=== PATIENT | female | born 1960 | race Caucasian/White ===

== ENCOUNTER 2023-07-02 16:27 | Inpatient (IN) | payer OTHER ==
[2023-07-02 17:29] VITALS: BMI 34.2
[2023-07-02] MEDS ORDERED: DOCUSATE SODIUM 100 MG CAPSULE (FP) PO PRN (20:20)
[2023-07-02] MEDS ORDERED: BENZOCAINE/MENTHOL (CHLORASEPTIC ) LOZENGE MM PRN (20:20)
[2023-07-02] MEDS ORDERED: P-EPHED 60MG/TRIPROLIDI 2.5MG TABLET PO PRN (20:20)
[2023-07-02] MEDS ORDERED: MAG HYDROX/AL HYDROX/SIMETH 30 ML UNIT-DOSE CUP PO PRN (20:20)
[2023-07-02] MEDS ORDERED: IBUPROFEN 600 MG TABLET (FP) PO PRN (20:20)
[2023-07-02] MEDS ORDERED: ACETAMINOPHEN 325 MG TABLET (FP) PO PRN (20:20)
[2023-07-02] MEDS ORDERED: NICOTINE POLACRILEX 2 MG GUM BUC PRN (20:20)
[2023-07-02] MEDS ORDERED: POLYETHYLENE GLYCOL (HEALTHYLAX) 3350 17 GM PACKET PO PRN (20:20)
[2023-07-02] MEDS ORDERED: BENZONATATE 200 MG CAPSULE PO PRN (20:20)
[2023-07-02] MEDS ORDERED: MAGNESIUM HYDROX 2400MG/30ML ORAL SUSPENSION 30 ML CUP PO PRN (20:20)
[2023-07-02] MEDS ORDERED: LOPERAMIDE HCL 2 MG CAPSULE PO PRN (20:20)
[2023-07-02] MEDS ORDERED: BISACODYL 5 MG TABLET.DR (FP) PO PRN (20:20)
[2023-07-02] MEDS: ALBUTEROL SO4 2.5/IPRATROPIUM 0.5 INH SOL 3 ML VIAL.NEB. NEB SCH (20:30)
[2023-07-02] MEDS ORDERED: ALBUTEROL SO4 2.5/IPRATROPIUM 0.5 INH SOL 3 ML VIAL.NEB. NEB ONE (20:39)
[2023-07-02] MEDS ORDERED: ALBUTEROL SO4 HFA INHALER IH PRN (21:12)
[2023-07-02] MEDS ORDERED: IBUPROFEN 600 MG TABLET (FP) PO ONE (21:30)
[2023-07-02] MEDS: MELATONIN 5 MG TABLETS PO SCH (23:02)
[2023-07-02] MEDS: THIAMINE HCL 100 MG TABLET (FP) PO SCH (23:02)
[2023-07-02 23:05] VITALS: RESP 18
[2023-07-02] MEDS: LIDOCAINE PATCH REMOVAL MC SCH (23:05)
[2023-07-03] MEDS: guaiFENesin 600 MG TABLET.ER (FP) PO PRN (02:40)
[2023-07-03] MEDS: IBUPROFEN 400 MG TABLET (FP) PO PRN (07:32)
[2023-07-03] MEDS: PRENATAL VITAMINS W/ FOLIC ACID TABLET (FP) PO SCH (10:06)
[2023-07-03] MEDS: LIDOCAINE 5% TOPICAL PATCH TP SCH (10:07)
[2023-07-03] MEDS: FLU VACCINE (FLULAVAL) PF 60 MCG/0.5 ML SYRINGE 2023-2024 IM ONE (12:06)
[2023-07-03 12:07] LABS: HEMATOCRIT 36.6 % (32.4-45.2); MCH 28.3 pg (25.7-33.7); MCHC 32.8 g/dl (32.0-36.0); MEAN CELL VOLUME 86.4 fl (80-96); MEAN PLT VOLUME 9.1 fl (7.5-11.1); PLATELET COUNT 319 10^3/uL (134-434); RBC 4.24 M/mm3 (3.60-5.2); RDW 15.3 % (11.6-15.6); WHITE BLOOD COUNT 7.6 K/mm3 (4.0-10.0)
[2023-07-03] MEDS: SERTRALINE HCL 50 MG TABLET (FP) PO SCH (12:07)
[2023-07-03 13:56] LABS: POTASSIUM 3.9 mmol/L (3.5-5.1)
[2023-07-03 14:05] LABS: ALBUMIN 3.1 g/dl (3.4-5.0); CALCIUM 8.5 mg/dL (8.5-10.1)
[2023-07-03 14:08] LABS: CREATININE 0.6 mg/dL (0.55-1.3)
[2023-07-03 14:10] LABS: BILIRUBIN,TOTAL 0.2 mg/dL (0.2-1); TOT PROT 6.8 g/dl (6.4-8.2)
[2023-07-03 18:03] LABS: SYPHILIS W/ RPR CONF NON-REACTIVE (NONREACTIVE)
[2023-07-03 18:18] VITALS: BP 126/74; PULSE 89; TEMP 97.7
[2023-07-03] MEDS: QUEtiapine FUMARATE 200 MG TABLET PO SCH (22:48)
== END 2023-07-04 02:50 | disposition short-term general hospital (02) | DRG 895 ==
LOC: YASAS 16:27 → Y5N 22:28
PROVIDERS: ADMIT Allergy & Immunology; ATTEND Psychiatry & Neurology Pain Medicine
PROC: HZ42ZZZ Group Counseling for Substance Abuse Treatment, Cognitive-Behavioral (ICD-10-PCS; principal; 2023-07-02)
DX: F14.20 Cocaine dependence, uncomplicated (principal); F19.280 Other psychoactive substance dependence with psychoactive substance-induced anxiety disorder; F19.282 Other psychoactive substance dependence with psychoactive substance-induced sleep disorder; F12.20 Cannabis dependence, uncomplicated; F17.210 Nicotine dependence, cigarettes, uncomplicated; F19.24 Other psychoactive substance dependence with psychoactive substance-induced mood disorder; F31.9 Bipolar disorder, unspecified; Z21 Asymptomatic human immunodeficiency virus [HIV] infection status; J44.9 Chronic obstructive pulmonary disease, unspecified; R05.9 Cough, unspecified; Z62.810 Personal history of physical and sexual abuse in childhood; Z91.410 Personal history of adult physical and sexual abuse; Z99.89 Dependence on other enabling machines and devices
CPT/HCPCS: 0241U-QW; 36415; 71046-TC-FY; 80053; 85027; 86780; 86803; 90686; 93005; 93010; 94640; G0008

== ENCOUNTER 2023-07-03 17:09 | Inpatient (IN) | payer OTHER ==
[2023-07-03 18:05] VITALS: BMI 31.2
[2023-07-03 20:02] LABS: BASO % 0.3 % (0-2.0); EOS % 2.1 % (0-4.5); HEMATOCRIT 36.8 % (32.4-45.2); LYMPH % 28.5 % (8-40); MCH 28.2 pg (25.7-33.7); MCHC 32.5 g/dl (32.0-36.0); MEAN CELL VOLUME 86.7 fl (80-96); MEAN PLT VOLUME 8.7 fl (7.5-11.1); MONO % 7.3 % (3.8-10.2); NEUT % 61.8 % (42.8-82.8); PLATELET COUNT 296 10^3/uL (134-434); RBC 4.25 M/mm3 (3.60-5.2); RDW 14.9 % (11.6-15.6); WHITE BLOOD COUNT 9.1 K/mm3 (4.0-10.0)
[2023-07-03 20:08] LABS: INR 1.03 (0.83-1.09)
[2023-07-03 20:10] LABS: ACTIVATED PTT 29.4 SECONDS (25.2-36.5)
[2023-07-03 20:43] LABS: POTASSIUM 4.1 mmol/L (3.5-5.1)
[2023-07-03 20:45] LABS: ALBUMIN 3.3 g/dl (3.4-5.0); CALCIUM 8.8 mg/dL (8.5-10.1)
[2023-07-03 20:46] LABS: MAGNESIUM 2.1 mg/dL (1.8-2.4)
[2023-07-03 20:49] LABS: CREATININE 0.6 mg/dL (0.55-1.3); PHOSPHOROUS 3.4 mg/dL (2.5-4.9)
[2023-07-03 20:50] LABS: BILIRUBIN,TOTAL 0.1 mg/dL (0.2-1); TOT PROT 7.2 g/dl (6.4-8.2)
[2023-07-04] MEDS: ACETAMINOPHEN 1000 MG/100 ML BAG IVPB ONE (01:51)
[2023-07-04] MEDS: MELATONIN 5 MG TABLETS PO ONE (01:51)
[2023-07-04 07:59] LABS: BASO % 0.5 % (0-2.0); EOS % 2.3 % (0-4.5); HEMATOCRIT 33.7 % (32.4-45.2); HEMOGLOBIN 11.5 GM/dL (10.7-15.3); LYMPH % 22.1 % (8-40); MEAN CELL VOLUME 85.2 fl (80-96); MEAN PLT VOLUME 9.1 fl (7.5-11.1); MONO % 8.7 % (3.8-10.2); NEUT % 66.4 % (42.8-82.8); PLATELET COUNT 277 10^3/uL (134-434); RBC 3.95 M/mm3 (3.60-5.2); RDW 14.8 % (11.6-15.6); WHITE BLOOD COUNT 7.8 K/mm3 (4.0-10.0)
[2023-07-04 08:09] LABS: POTASSIUM 3.7 mmol/L (3.5-5.1)
[2023-07-04 08:13] LABS: ALBUMIN 2.8 g/dl (3.4-5.0); BLOOD UREA NITROGEN 13.8 mg/dL (7-18); CALCIUM 8.2 mg/dL (8.5-10.1); MAGNESIUM 1.9 mg/dL (1.8-2.4)
[2023-07-04 08:16] LABS: CREATININE 0.5 mg/dL (0.55-1.3); PHOSPHOROUS 3.1 mg/dL (2.5-4.9)
[2023-07-04 08:18] LABS: BILIRUBIN,TOTAL 0.3 mg/dL (0.2-1); TOT PROT 6.8 g/dl (6.4-8.2)
[2023-07-04 09:21] LABS: ERYTHROCYTE SEDIMENTATION RATE 27 mm/hr (0-30)
[2023-07-04] MEDS: ACETAMINOPHEN 1000 MG/100 ML BAG IVPB PRN (09:53)
[2023-07-04] MEDS ORDERED: ACYCLOVIR 200 MG CAPSULE ONE (09:57)
[2023-07-04] MEDS ORDERED: NICOTINE 7 MG/24 HOURS TOPICAL PATCH TD ONE (09:58)
[2023-07-04] MEDS: SERTRALINE HCL 50 MG TABLET (FP) PO ONE (10:05)
[2023-07-04] MEDS: ACYCLOVIR 400 MG TABLET PO ONE (10:06)
[2023-07-04] MEDS: NICOTINE 7 MG/24 HOURS TOPICAL PATCH TD SCH (10:06)
[2023-07-04] MEDS ORDERED: ACYCLOVIR 400 MG TABLET PO SCH (12:37)
[2023-07-04] MEDS ORDERED: ACETAMINOPHEN INJECTION 100 ML IVPB ONE (18:48)
[2023-07-04] MEDS ORDERED: QUEtiapine FUMARATE 100 MG TABLET (FP) ONE (22:48)
[2023-07-04] MEDS: QUEtiapine FUMARATE 100 MG TABLET (FP) PO SCH (22:55)
[2023-07-05 09:21] LABS: BASO % 0.7 % (0-2.0); EOS % 2.8 % (0-4.5); HEMATOCRIT 36.6 % (32.4-45.2); HEMOGLOBIN 11.8 GM/dL (10.7-15.3); LYMPH % 31.6 % (8-40); MCH 27.7 pg (25.7-33.7); MCHC 32.2 g/dl (32.0-36.0); MEAN PLT VOLUME 8.3 fl (7.5-11.1); MONO % 9.4 % (3.8-10.2); NEUT % 55.5 % (42.8-82.8); PLATELET COUNT 270 10^3/uL (134-434); RBC 4.25 M/mm3 (3.60-5.2); RDW 14.7 % (11.6-15.6); WHITE BLOOD COUNT 6.3 K/mm3 (4.0-10.0)
[2023-07-05 09:49] LABS: CALCIUM 8.6 mg/dL (8.5-10.1)
[2023-07-05 09:50] LABS: BLOOD UREA NITROGEN 16.9 mg/dL (7-18)
[2023-07-05 09:53] LABS: CREATININE 0.6 mg/dL (0.55-1.3)
[2023-07-05 09:54] LABS: TOT PROT 6.9 g/dl (6.4-8.2)
[2023-07-05 09:55] LABS: BILIRUBIN,TOTAL 0.2 mg/dL (0.2-1)
[2023-07-05] MEDS ORDERED: SERTRALINE HCL 50 MG TABLET (FP) ONE (10:29)
[2023-07-05] MEDS: SERTRALINE HCL 50 MG TABLET (FP) PO SCH (10:32)
[2023-07-05] MEDS: ELVITEG/COB/EMTRI/TENOF (GENVOYA) TABLET PO SCH (10:32)
[2023-07-05] MEDS ORDERED: ACETAMINOPHEN INJECTION 100 ML IVPB ONE ×2 (11:12→20:36)
[2023-07-05] MEDS: ACETAMINOPHEN 1000 MG/100 ML BAG IVPB ONE ×2 (11:21→20:41)
[2023-07-05 20:10] LABS: CYCLIC CITRULLINE PEPTIDE AB 11 units (0-19)
[2023-07-05] MEDS ORDERED: ACYCLOVIR 200 MG CAPSULE ONE (22:02)
[2023-07-05] MEDS: ACYCLOVIR 400 MG TABLET PO SCH (22:04)
[2023-07-06] MEDS ORDERED: ACYCLOVIR 200 MG CAPSULE ONE (06:18)
[2023-07-06 06:49] LABS: HEMOGLOBIN 11.5 GM/dL (10.7-15.3); MCH 28.2 pg (25.7-33.7); MCHC 32.8 g/dl (32.0-36.0); MEAN CELL VOLUME 86.1 fl (80-96); MEAN PLT VOLUME 8.8 fl (7.5-11.1); PLATELET COUNT 249 10^3/uL (134-434); RBC 4.07 M/mm3 (3.60-5.2); RDW 14.9 % (11.6-15.6); WHITE BLOOD COUNT 5.1 K/mm3 (4.0-10.0)
[2023-07-06 07:01] LABS: ALBUMIN 2.8 g/dl (3.4-5.0); BLOOD UREA NITROGEN 24.5 mg/dL (7-18); CALCIUM 8.3 mg/dL (8.5-10.1)
[2023-07-06 07:04] LABS: CREATININE 0.5 mg/dL (0.55-1.3)
[2023-07-06 07:06] LABS: BILIRUBIN,TOTAL 0.2 mg/dL (0.2-1); TOT PROT 6.5 g/dl (6.4-8.2)
[2023-07-06] MEDS ORDERED: ACETAMINOPHEN INJECTION 100 ML IVPB ONE (09:52)
[2023-07-06] MEDS: ACETAMINOPHEN 1000 MG/100 ML BAG IVPB PRN (10:01)
[2023-07-06 15:28] VITALS: RESP 18
[2023-07-06] MEDS: IBUPROFEN 400 MG TABLET (FP) PO PRN (17:11)
[2023-07-07 09:12] LABS: HEMATOCRIT 36.7 % (32.4-45.2); MCHC 32.6 g/dl (32.0-36.0); MEAN CELL VOLUME 85.8 fl (80-96); MEAN PLT VOLUME 8.6 fl (7.5-11.1); PLATELET COUNT 259 10^3/uL (134-434); RBC 4.28 M/mm3 (3.60-5.2); RDW 14.8 % (11.6-15.6); WHITE BLOOD COUNT 6.3 K/mm3 (4.0-10.0)
[2023-07-07 09:32] LABS: POTASSIUM 4.4 mmol/L (3.5-5.1)
[2023-07-07 09:35] LABS: CALCIUM 8.1 mg/dL (8.5-10.1)
[2023-07-07 09:36] LABS: BLOOD UREA NITROGEN 19.6 mg/dL (7-18)
[2023-07-07 09:39] LABS: CREATININE 0.6 mg/dL (0.55-1.3)
[2023-07-08 11:07] LABS: METHADONE, UR NEGATIVE (NEGATIVE); URINE AMPHETAMINES NEGATIVE (NEGATIVE); URINE BENZODIAZEPINES NEGATIVE (NEGATIVE)
[2023-07-08 11:08] LABS: OPIATES, URI NEGATIVE (NEGATIVE); URINE BARBITURATES NEGATIVE (NEGATIVE)
[2023-07-08 11:09] LABS: PHENCYCLIDINE,URINE NEGATIVE (NEGATIVE)
[2023-07-08 11:12] LABS: COCAINE, UR POSITIVE (NEGATIVE)
[2023-07-08] MEDS: FAMOTIDINE 20 MG/50 ML IVPB 20 MG/50 ML MG IVPB ONE (12:03)
[2023-07-08 12:41] LABS: BASO % 0.8 % (0-2.0); HEMATOCRIT 35.5 % (32.4-45.2); HEMOGLOBIN 11.9 GM/dL (10.7-15.3); LYMPH % 29.8 % (8-40); MCH 28.8 pg (25.7-33.7); MCHC 33.5 g/dl (32.0-36.0); MEAN CELL VOLUME 86.1 fl (80-96); MEAN PLT VOLUME 9.4 fl (7.5-11.1); MONO % 7.5 % (3.8-10.2); NEUT % 58.9 % (42.8-82.8); PLATELET COUNT 270 10^3/uL (134-434); RBC 4.12 M/mm3 (3.60-5.2); RDW 15.2 % (11.6-15.6); WHITE BLOOD COUNT 6.9 K/mm3 (4.0-10.0)
[2023-07-08 13:02] LABS: POTASSIUM 4.5 mmol/L (3.5-5.1)
[2023-07-08 13:04] LABS: BLOOD UREA NITROGEN 21.2 mg/dL (7-18)
[2023-07-08 13:07] LABS: CREATININE 0.8 mg/dL (0.55-1.3)
[2023-07-08 16:10] LABS: ATYPICAL pANCA <1:20 titer (Neg:<1:20); C-ANCA <1:20 titer (Neg:<1:20)
[2023-07-08] MEDS ORDERED: TRIMETHOBENZAMIDE HCL 200MG/2ML INJ IM PRN (17:58)
[2023-07-09 08:37] VITALS: BP 108/51; PULSE 76; TEMP 98.6
[2023-07-09 08:52] LABS: BASO % 0.9 % (0-2.0); EOS % 3.9 % (0-4.5); HEMATOCRIT 34.6 % (32.4-45.2); HEMOGLOBIN 11.4 GM/dL (10.7-15.3); LYMPH % 38.4 % (8-40); MCH 28.1 pg (25.7-33.7); MCHC 32.8 g/dl (32.0-36.0); MEAN CELL VOLUME 85.8 fl (80-96); MEAN PLT VOLUME 9.2 fl (7.5-11.1); MONO % 9.3 % (3.8-10.2); NEUT % 47.5 % (42.8-82.8); PLATELET COUNT 249 10^3/uL (134-434); RBC 4.03 M/mm3 (3.60-5.2); RDW 14.6 % (11.6-15.6); WHITE BLOOD COUNT 5.2 K/mm3 (4.0-10.0)
[2023-07-09 09:13] LABS: POTASSIUM 4.3 mmol/L (3.5-5.1)
[2023-07-09 09:15] LABS: CALCIUM 8.8 mg/dL (8.5-10.1)
[2023-07-09 09:16] LABS: ALBUMIN 2.9 g/dl (3.4-5.0); BLOOD UREA NITROGEN 20.1 mg/dL (7-18); MAGNESIUM 2.1 mg/dL (1.8-2.4)
[2023-07-09 09:19] LABS: CREATININE 0.5 mg/dL (0.55-1.3)
[2023-07-09 09:20] LABS: BILIRUBIN,TOTAL 0.3 mg/dL (0.2-1)
[2023-07-09 09:21] LABS: TOT PROT 6.8 g/dl (6.4-8.2)
[2023-07-12] MEDS ORDERED: QUEtiapine FUMARATE 100 MG TABLET (FP) PO SCH (10:45)
== END 2023-07-09 14:28 | disposition other institution (70) | DRG 897 ==
LOC: JER 17:09 → JERBED 21:35 → J6S 07-06 16:56
PROVIDERS: ADMIT Internal Medicine; ATTEND Internal Medicine
DX: F14.288 Cocaine dependence with other cocaine-induced disorder (principal); J84.9 Interstitial pulmonary disease, unspecified; F14.20 Cocaine dependence, uncomplicated; J98.11 Atelectasis; Z59.00 Homelessness unspecified; R05.3 Chronic cough; F31.9 Bipolar disorder, unspecified; F20.9 Schizophrenia, unspecified; M54.50 Low back pain, unspecified; Z21 Asymptomatic human immunodeficiency virus [HIV] infection status; F17.210 Nicotine dependence, cigarettes, uncomplicated; A60.00 Herpesviral infection of urogenital system, unspecified; J44.9 Chronic obstructive pulmonary disease, unspecified; E66.9 Obesity, unspecified; Z68.35 Body mass index [BMI] 35.0-35.9, adult; F12.20 Cannabis dependence, uncomplicated; F19.982 Other psychoactive substance use, unspecified with psychoactive substance-induced sleep disorder; R42 Dizziness and giddiness; L92.9 Granulomatous disorder of the skin and subcutaneous tissue, unspecified; Z91.148 Patient's other noncompliance with medication regimen for other reason
CPT/HCPCS: 0241U-QW; 36415; 70450-TC; 71250-TC; 74018-TC-FY; 80048; 80053; 80307; 82550; 82962; 83520; 83605; 83615; 83735; 83880; 84100; 84484; 85025; 85027; 85610; 85651; 85730; 86038; 86140; 86200; 86256; 86359; 86360; 86431; 86480; 86850; 86900; 86901; 87040; 87070; 87205; 87449; 87536; 87635; 93005; 93010; 93306-TC; 99285-25; J0131

== ENCOUNTER 2023-07-09 15:15 | Inpatient (IN) | payer OTHER ==
[2023-07-09 16:23] VITALS: BMI 35.2
[2023-07-09] MEDS ORDERED: POLYETHYLENE GLYCOL (HEALTHYLAX) 3350 17 GM PACKET PO PRN (16:45)
[2023-07-09] MEDS ORDERED: MAG HYDROX/AL HYDROX/SIMETH 30 ML UNIT-DOSE CUP PO PRN (16:45)
[2023-07-09] MEDS ORDERED: guaiFENesin 600 MG TABLET.ER (FP) PO PRN (16:45)
[2023-07-09] MEDS ORDERED: BENZONATATE 200 MG CAPSULE PO PRN (16:45)
[2023-07-09] MEDS ORDERED: IBUPROFEN 400 MG TABLET (FP) PO PRN (16:45)
[2023-07-09] MEDS ORDERED: MAGNESIUM HYDROX 2400MG/30ML ORAL SUSPENSION 30 ML CUP PO PRN (16:45)
[2023-07-09] MEDS ORDERED: BENZOCAINE/MENTHOL (CHLORASEPTIC ) LOZENGE MM PRN (16:45)
[2023-07-09] MEDS ORDERED: LOPERAMIDE HCL 2 MG CAPSULE PO PRN (16:45)
[2023-07-09] MEDS ORDERED: P-EPHED 60MG/TRIPROLIDI 2.5MG TABLET PO PRN (16:45)
[2023-07-09 17:46] VITALS: RESP 18
[2023-07-09] MEDS: IBUPROFEN 600 MG TABLET (FP) PO PRN (21:09)
[2023-07-09] MEDS: MELATONIN 5 MG TABLETS PO SCH (21:09)
[2023-07-09] MEDS: THIAMINE HCL 100 MG TABLET (FP) PO SCH (21:09)
[2023-07-09] MEDS: ACYCLOVIR 400 MG TABLET PO SCH (21:59)
[2023-07-10] MEDS: PRENATAL VITAMINS W/ FOLIC ACID TABLET (FP) PO SCH (09:57)
[2023-07-10] MEDS: SERTRALINE HCL 50 MG TABLET (FP) PO SCH (09:57)
[2023-07-10] MEDS: NICOTINE 7 MG/24 HOURS TOPICAL PATCH TD SCH (09:57)
[2023-07-10] MEDS: ACETAMINOPHEN 325 MG TABLET (FP) PO PRN (09:58)
[2023-07-10] MEDS: ELVITEG/COB/EMTRI/TENOF (GENVOYA) TABLET PO SCH (11:15)
[2023-07-10] MEDS: QUEtiapine FUMARATE 200 MG TABLET PO SCH (21:20)
[2023-07-10] MEDS: DOCUSATE SODIUM 100 MG CAPSULE (FP) PO PRN (21:47)
[2023-07-11] MEDS: NICOTINE POLACRILEX 4 MG GUM BUC PRN (15:44)
[2023-07-11] MEDS ORDERED: ALBUTEROL SO4 HFA INHALER IH PRN (15:46)
[2023-07-11] MEDS ORDERED: ALBUTEROL SO4 2.5/IPRATROPIUM 0.5 INH SOL 3 ML VIAL.NEB. NEB PRN (15:46)
[2023-07-11] MEDS: SODIUM PHOSPHATE/NA BIPHOS 133 ML ENEMA RC ONE (17:05)
[2023-07-11] MEDS: BACLOFEN 10 MG TABLET (FP) PO SCH (22:12)
[2023-07-11] MEDS: METHYL SALICYLATE/MENTHOL OINT 30 GM TUBE TP SCH (22:12)
[2023-07-11] MEDS: TOLNAFTATE 1% CREAM 15 GM TUBE TP SCH (22:12)
[2023-07-12] MEDS: hydrOXYzine PAMOATE 25 MG CAPSULE (FP) PO ONE (11:35)
[2023-07-13] MEDS ORDERED: hydrOXYzine PAMOATE 25 MG CAPSULE (FP) PO PRN (15:55)
[2023-07-14] MEDS: BISACODYL 5 MG TABLET.DR (FP) PO PRN (07:49)
[2023-07-14] MEDS: QUEtiapine FUMARATE 100 MG TABLET (FP) PO SCH (10:18)
[2023-07-15] MEDS ORDERED: LIDOCAINE VISCOUS 2% ORAL/TOP 15 ML UNIT-DOSE CUP MM PRN (13:25)
[2023-07-17 07:16] VITALS: TEMP 97.5
[2023-07-17 09:28] VITALS: BP 111/62; PULSE 81
== END 2023-07-17 12:15 | disposition left against medical advice (07) | DRG 894 ==
LOC: YASAS 15:15 → Y5N 16:45
PROVIDERS: ADMIT Allergy & Immunology; ATTEND Psychiatry & Neurology Pain Medicine
PROC: HZ42ZZZ Group Counseling for Substance Abuse Treatment, Cognitive-Behavioral (ICD-10-PCS; principal; 2023-07-09)
DX: F14.20 Cocaine dependence, uncomplicated (principal); F19.282 Other psychoactive substance dependence with psychoactive substance-induced sleep disorder; F19.280 Other psychoactive substance dependence with psychoactive substance-induced anxiety disorder; F12.20 Cannabis dependence, uncomplicated; F17.210 Nicotine dependence, cigarettes, uncomplicated; F31.9 Bipolar disorder, unspecified; F20.9 Schizophrenia, unspecified; F19.24 Other psychoactive substance dependence with psychoactive substance-induced mood disorder; Z21 Asymptomatic human immunodeficiency virus [HIV] infection status; J44.9 Chronic obstructive pulmonary disease, unspecified; B35.1 Tinea unguium; M54.50 Low back pain, unspecified; G89.29 Other chronic pain; F91.8 Other conduct disorders; Z91.199 Patient's noncompliance with other medical treatment and regimen due to unspecified reason; Z91.89 Other specified personal risk factors, not elsewhere classified
CPT/HCPCS: J0475